=== PATIENT | female | born 1970 | race Caucasian/White ===

== ENCOUNTER → 2024-10-27 | Outpatient (CLI) | payer BC | END | disposition home or self-care (01) | LOC: US 12:20 | PROVIDERS: ATTEND Nurse Practitioner Primary Care | DX: E07.89 Other specified disorders of thyroid (principal); E04.1 Nontoxic single thyroid nodule ==

== ENCOUNTER 2024-12-18 08:06 | Emergency (ER) | payer BC ==
[~2024-12-18] VITALS: Wt 59.0 kg
[2024-12-18] MEDS ORDERED: Acetaminophen/Oxycodone 5 MG/325 MG TABLET PO ONE (08:25)
== END 2024-12-18 09:31 | disposition home or self-care (01) ==
LOC: ED 08:06
DX: S93.602A Unspecified sprain of left foot, initial encounter (principal); Z88.1 Allergy status to other antibiotic agents; X58.XXXA Exposure to other specified factors, initial encounter; Y93.01 Activity, walking, marching and hiking; Y92.89 Other specified places as the place of occurrence of the external cause; Y99.8 Other external cause status